=== PATIENT | male | born 2000 | race Asian ===

== ENCOUNTER 2022-04-28 19:45 | Emergency (ER) | payer OTHER, SELFPAY ==
[2022-04-28 19:47] VITALS: BP 122/66; PULSE 94; RESP 17; TEMP 36; O2SAT 96; BMI 41.9
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
[2022-04-28] MEDS: Acetaminophen 325 MG TABLET 975 MG PO (22:15)
--- OUTSIDE RECORDS SUMMARY | 2022-04-28 22:17 | XMS_ITS | Continuity of Care Document ---
:2000 Author Organization [facility] Address [address] [place] [id number]- Care Team Providers Name Role Phone Neva Brar MD Primary Care Physician [place] [facility](s): 12/03/21 - 12/03/[address] [address]- Encounter Diagnosis Fall (Final) - 12/03/21 Concussion (Final) - 12/03/21 Discharge Disposition: A-D/C Home Attending Physician: Julián Palomino DO Admitting Physician: Julián Palomino DO Referring Physician: Not on Staff, Referring MD Allergies, Adverse Reactions, Alerts Substance Reaction Severity Status Other Environmental Allergy Acti ve Medications FLUoxetine 10 mg oral tablet See Instructions, Take 1 tablet by mouth daily in the AM, # 30 tablet, 0 Refills, Maintenance, 12/12/15 10:11:25, Zoloft and Abilify was discontinued Start Date: 12/12/15 Status: OrderedPrilosec 40 mg oral enteric coated capsule By Mouth, Daily, 0 Refills, Maintenance, 06/22/15 13:53:38 Start Date: 06/22/15 Status: OrderedReglan 10 mg oral tablet 1 tablet = 10 mg, By Mouth, 3 times a day, PRN Nausea & Vomiting, # 12 tablet, 5 Refills, Acute 12/04/22 8:47:00 EDT, 12/03/21 8:47:00 EDT, [facility]/pharmacy #[id number], Partial fill upon patient request if the prescription is for a schedule II opioid drug., 17... Start Date: 12/03/21 Stop Date: 12/04/22 Status: OrderedWellbutrin SR 200 mg/12 hours oral tablet, extended release See Instructions, 1 tablet By Mouth daily at 7PM, # 30 tablet, 0 Refills, Maintenance, 12/12/15 10:14:43 Start Date: 12/12/15 Status: OrderedZyrTEC 10 mg oral tablet 1 tablet = 10 mg, By Mouth, Daily, # 30 tablet, 0 Refills, Maintenance, 11/17/15 12:20:33, Tablet Start Date: 11/17/15 Status: Ordered Vital Signs Most recent to oldest [Reference Range]: 1 2 Height 172.7 cm (12/03/21 5:57 AM) Weight 119.2 kg (12/03/21 5:57 AM) Oxygen Saturation [94-100 %] 99 % 99 % (12/03/21 8:04 AM) (12/03/21 5:57 AM) Pulse Rate [55-90 bpm] 73 bpm 87 bpm (12/03/21 8:04 AM) (12/03/21 5:57 AM) Body Mass Index [18.5-24.99] 39.97 *>HHI* (12/03/21 5:57 AM) Blood Pressure [90-138/55-84 mm Hg] 135/73 mm Hg 144/ 93 mm Hg (12/03/21 8:04 AM) *H* (12/03/21 5:57 AM) Respiratory Rate [16-30 br/min] 18 br/min (12/03/21 5:57 AM) Temperature [96.8-100.4 DegF] 98.1 DegF 98.2 DegF (12/03/21 8:04 AM) (12/03/21 5:57 AM) Mode of Delivery (Oxygen) Room air Room air (12/03/21 8:04 AM) (12/03/21 5:57 AM) Blood pressure sites Arm, right Arm, right (12/03/21 8:04 AM) (12/03/21 5:57 AM) Temperature Route Oral Oral (12/03/21 8:04 AM) (12/03/21 5:57 AM) Weight Obtained Via Standing scale (12/03/21 5:57 AM) Social History Social History Type Response Smoking Status Never smoker; Tobacco user i n household: No entered on: 06/22/15 Sex
== END 2022-04-28 22:22 | disposition home or self-care (01) ==
LOC: HO.ED 22:16
PROVIDERS: Emergency Provider Emergency Medicine Emergency Medical Services; PCP Pediatrics
DX: S06.0X0A Concussion without loss of consciousness, initial encounter (principal); R42 Dizziness and giddiness; R51.9 Headache, unspecified; V43.52XA Car driver injured in collision with other type car in traffic accident, initial encounter; Y93.9 Activity, unspecified; Y92.410 Unspecified street and highway as the place of occurrence of the external cause; Y99.9 Unspecified external cause status
CPT/HCPCS: 99283

== ENCOUNTER 2022-06-08 10:18 | Emergency (ER) | payer OTHER, SELFPAY ==
--- NOTE | ~2022-06-08 | XR_ITS ---
EXAMINATION: CR X-RAY FOOT AND ANKLE RIGHT CLINICAL INFORMATION: Right foot and ankle pain status post injury. COMPARISON: None TECHNIQUE: 3 views each of the right foot and ankle were obtained. FINDINGS: Mild to moderate soft tissue swelling is seen most pronounced laterally in the right ankle overlying the lateral malleolus. The ankle joint and mortise are intact. The tarsal bones are normally aligned. The metatarsals and phalanges are intact. The joint spaces are unremarkable. There is no acute fracture. XR/XR ankle RT min 3V IMPRESSION: Mild to moderate soft tissue swelling, most pronounced laterally in the ankle without acute underlying osseous abnormality.
--- NOTE | ~2022-06-08 | XR_ITS ---
EXAMINATION: CR X-RAY FOOT AND ANKLE RIGHT CLINICAL INFORMATION: Right foot and ankle pain status post injury. COMPARISON: None TECHNIQUE: 3 views each of the right foot and ankle were obtained. FINDINGS: Mild to moderate soft tissue swelling is seen most pronounced laterally in the right ankle overlying the lateral malleolus. The ankle joint and mortise are intact. The tarsal bones are normally aligned. The metatarsals and phalanges are intact. The joint spaces are unremarkable. There is no acute fracture. XR/XR foot RT min 3V IMPRESSION: Mild to moderate soft tissue swelling, most pronounced laterally in the ankle without acute underlying osseous abnormality.
[2022-06-08 10:25] VITALS: BP 125/81; PULSE 104; RESP 18; TEMP 36.1; O2SAT 97; BMI 41.9
--- NOTE | 2022-06-08 11:28 | ED_ITS ---
HPI - Extremity Problem General Chief complaint: Extremity Problem Stated complaint: R Foot Pain No Injury Time Seen by Provider: 06/08/22 11:11 Source: patient and family (mother at [facility]) Mode of arrival: wheelchair Limitations: no limitations History of Present Illness HPI Narrative: Patient is a 22 year old male with no significant PMH who presents to the ED with a 2 day history of right foot pain. 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 Patient reports mild right foot pain and tenderness on Saturday after he closed from work that has significantly gotten worse over the past few days. He reports that he was intially able to ambulate without any discomfort but now has significant pain to his right foot and cant bear any weight on it. Patient denies any injury, or trauma to the right foot. Patient denies similar symptoms to his left foot and states that the right foot pain is non radiating and constant. Patient states that he used ice packs, icy hot cream, CARLO wraps, OTC tylenol and Ibuprofen which provided temporary relief of his symptoms. Patient denies fever, nausea, vomiting, chest pain, SOB, loss of sensation in upper and lower extremities, numbness and tingling in his feet. Patient denies any other issues, complains or concerns at this time. MD Complaint: extremity pain and extremity swelling Onset (ago): day(s) (3 days ago) Pain Consistency: constant Location: right and lower extremity Severity scale (1-10): 5 Quality: aching Radiation: none Relieving factors: cold therapy and rest Exacerbating factors: weight bearing and palpation Associated symptoms: denies other symptoms Related Data Previous Rx's Medication Instructions Recorded naproxen 500 mg tablet 500 mg PO BID PRN pain #14 tabs 06/08/22 Allergies Allergy/AdvReac Type Severity Reaction Status Date / Time No Known Allergies Allergy Verified 06/08/22 10:27 Review of Systems Review of Systems: Constitutional : No Weight loss, No Fever, No Chills, No Night Sweats, No Fatigue, No Malaise ENT/Mouth : No Hearing loss, No Ear Pain, No Nasal Congestion, No Sinus Pain, No Hoarseness, No sore throat, No Rhinorrhea, No Swallowing Difficulty Eyes: No Eye Pain, No Swelling, No Redness, No Foreign Body, No Discharge, No Vision Changes Cardiovascular : No Chest Pain, No SOB, No Dyspnea on Exertion, No Orthopnea, No Edema, No Palpitations Respiratory : No Cough, No Sputum, No Wheezing, No Smoke Exposure, No Dyspnea Gastrointestinal : No Nausea, No Vomiting, No Diarrhea, No Constipation, No abdominal Pain, No Hematochezia, No Melena Genitourinary : no irregular bleeding, No Dysuria, No Urinary Frequency, No Hematuria, No Urinary Incontinence, No Urgency, No Flank Pain, No Urinary Flow Changes, No Hesitancy Musculoskeletal : + Right foot pain and swelling, + joint pain, + difficulty walking on right foot, No Myalgias Skin : No Skin Lesions, Neuro : No Weakness, No Numbness, No Paresthesias, No Loss of Consciousness, No Dizziness, No Headache Psych : No Anxiety/Panic, No Depression, No SI/HI/AH/VH, No Social Issues, Heme/Lymph: No Bruising, No Bleeding,No Lymphadenopathy Endocrine : No Polyuria, No Polydipsia, No Temperature Intolerance Yes all other systems are reviewed and are negative [facility] Past Medical History Attestation statement: The following information was validated with the patient. Source: old records reviewed, obtained from family and nursing notes reviewed Social History Social History Advance Directives: No Advance Directives Information Provided: No Physical Exam Vital Signs: Vital Signs: Last Vital Signs Temp 97 F 06/08/22 10:25 Pulse 104 H 06/08/22 10:25 Resp 18 06/08/22 10:25 BP 125/81 06/08/22 10:25 Pulse Ox 97 06/08/22 10:25 O2 Del Method 06/08/22 10:25 BMI result Body Mass Index 41.9 Vital signs reviewed. Blood pressure normal. Pulse is 104. Respiration normal. Oxygen normal. Temperature normal. Appearance: Alert. Oriented X3. No acute distress. Head: Normal external exam. Normocephalic. Atraumatic. Eyes: PERRLA. EOMI. Conjunctiva and sclera normal. Eyelids normal. ENT: EAC normal. TM's Normal. Pharynx normal. Uvula midline. Moist mucous membranes. No lesions/ulcerations or masses noted on the tongue. Normal voice. No trismus noted. No drooling noted. No muffled voice noted. Neck: Normal inspection. Neck supple. FROM. Thyroid Normal. No meningeal signs. CVS: Normal heart rate and rhythm. Heart sound normal. No murmurs/rales/gallops. Respiratory: No respiratory distress. Painless inspiration. Breath sounds normal. No wheezes/rales/rhonchi noted. Chest nontender. No accessory muscle usage noted or decreased air movement noted. Abdomen: Soft and nontender. Back: Full range of motion noted. Nontender. Skin: Skin warm and dry. Normal skin color. Normal skin turgor. Dry scaly rash on lateral aspect of right ankle, no lesions/lacerations noted. Extremities: Tenderness to palpation of right foot, limited active range of padmini on exhibited with right foot. Achilles tendon is intact. Negative Page test. No obvious ligamentous or tendon injury noted. No lower extremity more calf tenderness noted. Otherwise all other Extremities exhibit normal range of motion and nontender. Neuro: Oriented X 3. No motor deficit. No sensory deficit. Normal steady gait. No focal neuro deficits noted. Vascular: + dorsalis pedis and posterior tibia pulses. Normal cap refill. No cyanosis noted to upper extremity/nails Course Course Course Narrative: Patient is a 22 year old male with no significant PMH who presents to the ED with a 2 day history of right foot pain. Patient reports mild right foot pain and tenderness on Saturday after he closed from work that has significantly gotten worse over the past few days. He now has significant pain to his right foot and cant bear any weight on it. Patient denies any injury, or trauma to the right foot. Patient denies fever, nausea, vomiting, chest pain, SOB, loss of sensation in upper and lower extremities, numbness and tingling in his feet. On physical exam, patient was alert and oriented in no acute distress. The lateral aspect of right ankle was noted to have significant swelling and mild erythema. There was a dry scaly patch noted on right ankle of which patient states has always been there. Patient had limited active range of motion of right foot but exhibited full passive range of motion. Normal capillary refill in bilateral extremities with 2+ dorsalis pedis and radial pulses bilaterally. Sensations intact bilaterally. Plan; Foot and ankle Xray findings : Mild to moderate soft tissue swelling is seen most pronounced laterally in the right ankle overlying the lateral malleolus. The ankle joint and mortise are intact. The tarsal bones are normally aligned. The metatarsals and phalanges are intact. The joint spaces are unremarkable. There is no acute fracture. CARLO wraps will be applied to right foot and ankle and patient will be discharged with crutches due to inability to bear weight on affected foot. Medications Administered Discontinued Medications Generic Name Dose Route Start Last Admin Trade Name Freq PRN Reason Stop Dose Admin Naproxen 500 mg 06/08/22 11:30 06/08/22 11:52 Naproxen 500 Mg Tablet PO 06/08/22 11:31 500 mg ONCE ONE Administration Medical Decision Making Medical Decision Making Independent historian (e.g., spouse, EMS, friend): Independent historian (e.g., spouse, EMS, friend) Clinical information obtained from an independent hi storian. History obtained from or confirmed by: Parent Discharge Plan Discharge Clinical Impression: Right ankle tendonitis Patient Disposition: Home, Self-Care Instructions: Tendinitis (ED) Prescriptions: New naproxen 500 mg tablet 500 mg PO BID PRN (Reason: pain) Qty: 14 0RF Referrals: Neva Brar MD [Primary Care Provider] - 3 days Stand Alone Forms: Work/School Release Interventions: ED Discharge Assessment Last Done: 06/08/22 12:05 Discharge Date/Time: 06/08/22 12:06
[2022-06-08] MEDS: NaPROXEN 500 MG TABLET PO (11:52)
== END 2022-06-08 12:06 | disposition home or self-care (01) ==
PROVIDERS: Emergency Provider Emergency Medicine Emergency Medical Services; PCP Pediatrics
DX: M65.271 Calcific tendinitis, right ankle and foot (principal); M79.671 Pain in right foot
CPT/HCPCS: 73610; 73630; 99283

== ENCOUNTER 2023-08-01 17:59 | Emergency (ER) | payer OTHER, SELFPAY ==
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
[2023-08-01 18:17] VITALS: BP 150/98; PULSE 97; RESP 16; TEMP 36.8; O2SAT 98; BMI 42.6
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
[2023-08-01] MEDS: Acetaminophen 325 MG TABLET 975 MG PO (19:37)
== END 2023-08-01 20:04 | disposition home or self-care (01) ==
PROVIDERS: Emergency Provider Student in an Organized Health Care Education/Training Program; PCP Internal Medicine Cardiovascular Disease
DX: S06.0X0A Concussion without loss of consciousness, initial encounter (principal); V47.5XXA Car driver injured in collision with fixed or stationary object in traffic accident, initial encounter; Y93.89 Activity, other specified; Y92.414 Local residential or business street as the place of occurrence of the external cause; Y99.9 Unspecified external cause status
CPT/HCPCS: 70450; 99283; 99284

== ENCOUNTER 2024-08-21 22:07 | Emergency (ER) | payer OTHER, SELFPAY ==
[2024-08-21 22:20] VITALS: BP 137/88; PULSE 117; RESP 20; TEMP 37.2; O2SAT 95; BMI 40.7
--- NOTE | 2024-08-21 22:34 | MHC.EDTECH ---
Patient brought into triage area,labs,urine,and sars/flu/rsv obtained and sent to lab.
[2024-08-21 22:41] LABS: MANUAL DIFF FLAG NO
[2024-08-21 22:42] LABS: Appearance Urine Clear; Basophils Percent Auto 0.2 % (0-2); Color Urine Yellow; Eosinophils Absolute Auto 0.3 X10*3/uL (0.0-0.4); Eosinophils Percent Auto 2.2 % (0-4); Glucose Urine UA Negative (Negative); Hematocrit 48.4 % (42.0-52.0); Hemoglobin 17.1 g/dl (14.0-18.0); Imm Gran Abs Auto 0.06 X10*3/uL (0.00-0.03); Imm Gran Pct Auto 0.4 % (0.0-0.4); Leukocyte Esterase Urine Negative (Negative); Lymphocytes Absolute Auto 2.2 X10*3/uL (1.2-4.9); Lymphocytes Percent Auto 13.9 % (20-40); Mean Corpuscular HGB Conc 35.3 g/dl (31.0-36.0); Mean Corpuscular Hemoglobin 30.9 pg (27.0-33.0); Mean Corpuscular Volume 87.5 fL (80.0-98.0); Mean Platelet Volume 10.6 fL (9.4-12.4); Monocytes Absolute Auto 1.1 X10*3/uL (0.1-1.2); Monocytes Percent Auto 7.2 % (2-11); Neutrophils Percent Auto 76.1 % (45-73); Nitrite Urine Negative (Negative); PH 5.5 (5.0-9.0); Platelet Count 324 X10*3/uL (160-400); Red Blood Count 5.53 X10*6/uL (4.60-5.80); Red Cell Distribution Width 12.3 % (11.0-16.0); Specific Gravity - Urine 1.025 (1.005-1.025); UMIC TRIGGER UACC YES; Urine Blood Negative (Negative); Urine Ketones Trace mg/dL (Negative); Urine Protein 100 (2+) mg/dL (Neg-Trace); White Blood Count 15.7 X10*3/uL (4.8-10.8)
[2024-08-21 22:47] LABS: Bacteria Urine None Seen (None Seen); Hyaline Casts Urine 0-2 /LPF (0-2); RBC Urine 0-2 /HPF (0-2); Squamous Epithelial Cell Urine 0-2 /HPF (0-2); WBC Urine 0-5 /HPF (0-5)
[2024-08-21 22:55] LABS: Alanine Aminotransferase 80 U/L (0-40); Albumin Level 4.8 g/dL (3.5-5.0); Alkaline Phosphatase 69 U/L (39-117); Anion Gap 16 (12-20); Aspartate Amino Transferase 35 U/L (5-37); Bilirubin Total 0.9 mg/dL (0.0-1.0); Blood Urea Nitrogen 13 mg/dL (9-16); Calcium 9.8 mg/dL (8.4-10.2); Carbon Dioxide 17 mmol/L (22-29); Chloride 109 mmol/L (96-108); Creatinine Clr Calc Pharmacy 163.2; Estimated Glomerular Filt Rate > 60; Glucose Random 108 mg/dL (60-115); Lipase 7 U/L (8-78); Potassium 3.5 mmol/L (3.3-5.1); Sodium 138 mmol/L (135-145); Total Protein 8.8 g/dL (6.5-8.0)
[2024-08-21 23:18] LABS: Influenza A PCR NEGATIVE (Negative); Influenza B PCR NEGATIVE (Negative); Resp Syncy Virus RNA Qual PCR NEGATIVE (Negative); SARS COV2 PCR INHOUSE NEGATIVE (Negative)
[2024-08-21 23:58] VITALS: BP 134/84; PULSE 113; RESP 20; TEMP 36.7; O2SAT 97
[2024-08-22] MEDS: Lidocaine HCl Viscous 2 % 15 ML SOLUTION MUCOUS MEM (01:15)
[2024-08-22] MEDS: Magnesium Hydrox/Alum Hydrox 30 ML ORAL.SUSP PO (01:15)
[2024-08-22] MEDS: Famotidine 20 MG TABLET PO (01:17)
[2024-08-22] MEDS: Simethicone 80 MG TAB.CHEW 160 MG PO (01:17)
--- NOTE | 2024-08-22 01:30 | ED_ITS ---
HPI - General Adult General Chief complaint: General Medical Stated complaint: diarrhea, bloating, vomiting, abd pain Time Seen by Provider: 08/22/24 01:01 Source: patient and family Mode of arrival: ambulatory Limitations: no limitations History of Present Illness ED Provider: Dr. Shirley Dubois HPI narrative: Patient comes to the emergency room complaining of 3 days of nausea , vomiting, diarrhea, bloating, abdominal cramping. Patient denies any sick contacts. Patient denies fever chills, denies URI or UTI symptoms. Related Data Previous Rx's ?Medication ?Instructions ?Recorded naproxen 500 mg tablet 500 mg PO BID PRN pain #14 tabs 06/08/22 hyoscyamine sulfate 0.125 mg tablet 0.125 mg PO QID PRN dyspepsia #10 08/22/24 tabs Allergies Allergy/AdvReac Type Severity Reaction Status Date / Time No Known Allergies Allergy Verified 08/21/24 22:23 Review of Systems 2 Review of Systems: Constitutional : No Weight loss, No Fever, No Chills, No Night Sweats, No Fatigue, No Malaise ENT/Mouth : No Hearing loss, No Ear Pain, No Nasal Congestion, No Sinus Pain, No Hoarseness, No sore throat, No Rhinorrhea, No Swallowing Difficulty Eyes: No Eye Pain, No Swelling, No Redness, No Foreign Body, No Discharge, No Vision Changes Cardiovascular : No Chest Pain, No SOB, No Dyspnea on Exertion, No Orthopnea, No Edema, No Palpitations Respiratory : No Cough, No Sputum, No Wheezing, No Smoke Exposure, No Dyspnea Gastrointestinal : Complaining of nausea, vomiting, diarrhea, bloating, abdominal discomfort Genitourinary : no irregular bleeding, No Dysuria, No Urinary Frequency, No Hematuria, No Urinary Incontinence, No Urgency, No Flank Pain, No Urinary Flow Changes, No Hesitancy Musculoskeletal : No joint pain, No Myalgias, No Joint Swelling Skin : No Skin Lesions, No rash Neuro : No Weakness, No Numbness, No Paresthesias, No Loss of Consciousness, No Dizziness, No Headache Psych : No Anxiety/Panic, No Depression, No SI/HI/AH/VH, No Social Issues, Heme/Lymph: No Bruising, No Bleeding,No Lymphadenopathy Endocrine : No Polyuria, No Polydipsia, No Temperature Intolerance [facility] Social History Social History Alcohol intake: current Alcohol intake frequency: holidays/special occasions only Smoked in Last 30 Days: No Use of substances other than those prescribed or required for medical reasons: No Advance Directives: No Advance Directives Information Provided: No Physical Exam ED Vital Signs: Vital Signs - 24 hr 08/21/24 22:20 08/21/24 23:58 08/22/24 02:08 Temperature 99.0 F 98.1 F 98.8 F Pulse Rate 117 H 113 H 90 Respiratory Rate 20 20 18 Blood Pressure 137/88 134/84 124/78 Pulse Oximetry 95 97 99 Oxygen Delivery Method Room Air Room Air Room Air BMI result Body Mass Index 40.7 Const Other: Appearance: Alert. Oriented X3. No acute distress. Eyes: Pupils equal, round and reactive to light. ENT: Pharynx normal. Neck: Normal inspection. Neck supple. No lymph nodes noted. No crepitus CVS: Normal heart rate and rhythm. Pulses normal. Normal S1 and S2 Respiratory: No respiratory distress. Breath sounds normal. No Wheezing. No rales Abdomen: Soft and nontender. No rigidity. No distention. Skin: Skin warm and dry. Normal skin color. Normal skin turgor. Extremities: No lower extremity edema. No Lacerations. No Rash Neuro: Oriented X 3. No motor deficit. No sensory deficit. Moving all extremities. No slurred speech. CN 2 through 12 grossly intact Psych: calm, cooperative, normal affect Course Course Course Narrative: Were symptomatic treatment, patient receiving a Maalox, viscous lidocaine, famotidine, simethicone Medications Administered Discontinued Medications Generic Name Dose Route Start Last Admin Trade Name Freq PRN Reason Stop Dose Admin Al Hydroxide/Mg Hydroxide 30 ml 08/22/24 01:05 08/22/24 01:15 Magnesium Hydrox/Alum Hydrox 30 Ml Oral.Susp PO 08/22/24 01:06 30 ml ONCE ONE Administration Famotidine 20 mg 08/22/24 01:05 08/22/24 01:17 Famotidine 20 Mg Tablet PO 08/22/24 01:06 20 mg ONCE ONE Administration Lidocaine HCl 15 ml 08/22/24 01:05 08/22/24 01:15 Lidocaine Hcl Viscous 2 % 15 Ml Solution MUCOUS MEM 08/22/24 01:06 15 ml ONCE ONE Administration Simethicone 160 mg 08/22/24 01:05 08/22/24 01:17 Simethicone 80 Mg Tab.Chew PO 08/22/24 01:06 160 mg ONCE ONE Administration Medical Decision Making Medical Decision Making [facility] Narrative: My interpretation of labs: Patient's white blood cell count 15.7, likely reactive leukocytosis, no significant abnormality in patient's chemistry, bicarb a bit decreased. Urinalysis negative, influenza, RSV, COVID negative Patient is feels physical exam reassuring, no significant pain to palpation. Soft, nondistended After the above-mentioned treatment, patient states that he feels much better. Differential Diagnosis Differential Diagnoses: The differential diagnosis associated with the presentation includes (Viral GI, gastritis, gastroenteritis) Lab Data [facility] Lab Attestation statement: I reviewed the patient's lab results. 08/21/24 22:33 08/21/24 22:33 Labs: Lab Results 08/21/24 Range/Units 22:33 WBC 15.7 H (4.8-10.8) X10*3/uL RBC 5.53 (4.60-5.80) X10*6/uL Hgb 17.1 (14.0-18.0) g/dl Hct 48.4 (42.0-52.0) % MCV 87.5 (80.0-98.0) fL MCH 30.9 (27.0-33.0) pg MCHC 35.3 (31.0-36.0) g/dl RDW 12.3 (11.0-16.0) % Plt Count 324 (160-400) X10*3/uL MPV 10.6 (9.4-12.4) fL Immature Gran % (Auto) 0.4 (0.0-0.4) % Neut % (Auto) 76.1 H (45-73) % Lymph % (Auto) 13.9 L (20-40) % Randall % (Auto) 7.2 (2-11) % Eos % (Auto) 2.2 (0-4) % Baso % (Auto) 0.2 (0-2) % Lymph # (Auto) 2.2 (1.2-4.9) X10*3/uL Randall # (Auto) 1.1 (0.1-1.2) X10*3/uL Eos # (Auto) 0.3 (0.0-0.4) X10*3/uL Baso # (Auto) 0.0 (0.0-0.2) X10*3/uL Abs Immat Gran (auto) 0.06 H (0.00-0.03) X10*3/uL Absolute Neuts (auto) 12.0 H (2.0-8.3) x10*3/uL Absolute Nucleated RBC 0.000 (0.0-0.012) X10*3/uL Nucleated RBC % (auto) 0.0 (0.0-0.2) /100WBC Sodium 138 (135-145) mmol/L Potassium 3.5 (3.3-5.1) mmol/L Chloride 109 H (96-108) mmol/L Carbon Dioxide 17 L (22-29) mmol/L Anion Gap 16 (12-20) BUN 13 (9-16) mg/dL Creatinine 0.90 (0.5-1.4) mg/dL Estim Creat Clear Calc 163.2 Estimated GFR > 60 Random Glucose 108 (60-115) mg/dL Calcium 9.8 (8.4-10.2) mg/dL Total Bilirubin 0.9 (0.0-1.0) mg/dL AST 35 (5-37) U/L ALT 80 H (0-40) U/L Alkaline Phosphatase 69 (39-117) U/L Total Protein 8.8 H (6.5-8.0) g/dL Albumin 4.8 (3.5-5.0) g/dL Lipase 7 L (8-78) U/L Urine Color Yellow Urine Appearance Clear Urine pH 5.5 (5.0-9.0) Ur Specific [place] 1.025 (1.005-1.025) Urine Protein 100 (2+) H (Neg-Trace) mg/dL Urine Glucose (UA) Negative (Negative) mg/dL Urine Ketones Trace (Negative) mg/dL Urine Blood Negative (Negative) Urine Nitrite Negative (Negative) Ur Leukocyte Esterase Negative (Negative) Urine RBC 0-2 (0-2) /HPF Urine WBC 0-5 (0-5) /HPF Ur Squamous Epith Cells 0-2 (0-2) /HPF Urine Bacteria None Seen (None Seen) Hyaline Casts 0-2 (0-2) /LPF Influenza Type A (PCR) NEGATIVE (Negative) Influenza Type B (PCR) NEGATIVE (Negative) RSV RNA Qual (PCR) NEGATIVE (Negative) SARS-CoV-2 RNA (RT-PCR) NEGATIVE (Negative) Discharge Plan Discharge Clinical Impression: Abdominal pain Patient Disposition: Home, Self-Care Instructions: Abdominal Pain (ED) Additional Instructions: Please follow-up with your primary care physician tomorrow. If you have any worsening or new symptoms, please return to the emergency room or call 911 Prescriptions: New hyoscyamine sulfate 0.125 mg tablet 0.125 mg PO QID PRN (Reason: dyspepsia) Qty: 10 0RF No Action naproxen 500 mg tablet 500 mg PO BID PRN (Reason: pain) Qty: 14 0RF Stand Alone Forms: Work/School Release Print Language: Jamaican
[2024-08-22 02:08] VITALS: BP 124/78; PULSE 90; RESP 18; TEMP 37.1; O2SAT 99
[2024-08-22 02:56] VITALS: BP 125/75; PULSE 89; RESP 20; TEMP 36.9; O2SAT 99
== END 2024-08-22 02:58 | disposition home or self-care (01) ==
PROVIDERS: Emergency Provider Emergency Medicine; PCP Family Medicine
DX: R11.2 Nausea with vomiting, unspecified (principal); R10.2 Pelvic and perineal pain; R25.2 Cramp and spasm; R19.7 Diarrhea, unspecified; Z03.818 Encounter for observation for suspected exposure to other biological agents ruled out; Z79.899 Other long term (current) drug therapy
CPT/HCPCS: 0241U; 80053; 81001; 83690; 85025; 99283; 99284